=== PATIENT | male | born 1990 | race African-American/Black ===

== ENCOUNTER 2018-07-31 11:17 | Emergency (ER) | payer SELFPAY ==
[2018-07-31 11:51] LABS: Bilirubin Negative (Negative); Blood, Urine Negative (Negative); Clarity CLEAR (Clear); Glucose, Urine (Dipstick) Negative (Negative); Leukocyte Negative (Negative); Nitrite Negative (Negative); Protein, Urine (Dipstick) Negative (Neg-Trace); Urobilinogen 0.2 mg/dL (0.2-1.0); pH, Urine 7.5 (5.0-9.0)
[2018-08-02 20:01] LABS: Chlamydia by PCR Not Detected (NotDetected); GC by PCR Not Detected (NotDetected)
== END 2018-07-31 12:43 | disposition home or self-care (01) ==
LOC: ERS 11:17
DX: R30.0 Dysuria (principal); F17.210 Nicotine dependence, cigarettes, uncomplicated
CPT/HCPCS: 81003; 87491; 87591; 99281

== ENCOUNTER 2019-11-02 03:53 | Emergency (ER) | payer SELFPAY | END 2019-11-02 04:57 | disposition home or self-care (01) | LOC: ERS 03:53 | DX: K02.9 Dental caries, unspecified (principal); F17.210 Nicotine dependence, cigarettes, uncomplicated | CPT/HCPCS: 99282 ==

== ENCOUNTER 2020-07-25 15:11 | Emergency (ER) | payer SELFPAY ==
[2020-07-25] MEDS ORDERED: Lidocaine 1% (PF) 30 ML VIAL ONE (15:34)
[2020-07-25] MEDS ORDERED: Boostrix 0.5 ML (Tdap) VIAL ONE (15:35)
== END 2020-07-25 16:29 | disposition home or self-care (01) ==
LOC: ERS 15:11
DX: S51.811A Laceration without foreign body of right forearm, initial encounter (principal); Z23 Encounter for immunization; F17.210 Nicotine dependence, cigarettes, uncomplicated; W25.XXXA Contact with sharp glass, initial encounter
CPT/HCPCS: 12004; 90471; 90715; J2001

== ENCOUNTER 2020-08-18 19:29 | Emergency (ER) | payer SELFPAY | END 2020-08-18 20:41 | disposition home or self-care (01) | LOC: ERS 19:29 | DX: S51.811D Laceration without foreign body of right forearm, subsequent encounter (principal); F17.210 Nicotine dependence, cigarettes, uncomplicated; X58.XXXD Exposure to other specified factors, subsequent encounter ==

== ENCOUNTER 2021-04-29 08:49 | Emergency (ER) | payer SELFPAY | END 2021-04-29 10:41 | disposition home or self-care (01) | LOC: ERS 08:49 | DX: J10.1 Influenza due to other identified influenza virus with other respiratory manifestations (principal) | CPT/HCPCS: 87804; 99284 ==

== ENCOUNTER 2021-10-25 21:56 | Emergency (ER) | payer SELFPAY ==
[2021-10-26] MEDS ORDERED: Dexamethasone 10 MG/ML VIAL ONE (01:31)
[2021-10-26] MEDS ORDERED: Bicillin LA 1.2 MILLION UNITS/2 ML SYRINGE ONE (01:32)
== END 2021-10-26 01:57 | disposition home or self-care (01) ==
LOC: ERS 21:56
DX: J02.9 Acute pharyngitis, unspecified (principal); F17.210 Nicotine dependence, cigarettes, uncomplicated
CPT/HCPCS: 70491; 87081; 87430; 96372; J0561; J1100